=== PATIENT | female | born 1980 | race Caucasian/White ===

== ENCOUNTER → 2018-03-07 | Outpatient (CLI) | payer OTHER | LOC: SLEEP 15:18 → MERGE 15:20 | PROVIDERS: ATTEND Internal Medicine Critical Care Medicine | DX: Z53.9 Procedure and treatment not carried out, unspecified reason (principal) ==

== ENCOUNTER → 2018-03-28 | Outpatient (CLI) | payer OTHER ==
--- NOTE | 2018-03-28 15:10 | CONS ---
CONSULTATION Consultation note for sleep apnea and hypersomnia. A 37-year-old female patient, a , with known history of depression, PTSD and anxiety is coming in for excessive sleepiness during the day. The patient has been suspected of obstructive sleep apnea. For that reason, she was referred to me. She is obese and she is snoring and clearly reports witnessed apneas throughout the night and occurring on multiple occasions. The patient is trying to sleep approximately 10 hours. She goes to bed around 10:00 p.m. and wakes up at 8 a.m. in the morning and despite that, she is still very much drowsy and sleepy during the day. She was recently given Tofranil which made her condition worse. Tofranil is an imipramine in all generation tricyclic antidepressant that can cause excessive side effects including excessive drowsiness and sleepiness. Since on Tofranil the patient gained more weight and she has become much more drowsy or sleepy to the point where she is having a hard time keeping herself awake. She is also on a combination of Prozac/SSRI and Abilify. She is seeing [facility] regarding her history of depression and PTSD. She is tired all the time. She is having difficulty with concentration, memory and concentration. No excessive restlessness of lower extremities. Occasional sleep talking, no sleepwalking. [place] score is at 16. PAST MEDICAL HISTORY: Depression, PTSD, anxiety and obesity. PAST SURGICAL HISTORY: The patient has undergone a cholecystectomy, left hand surgeon, right knee surgery and hysterectomy. DRUG ALLERGIES: Positive COMPAZINE; LAMICTAL and LATEX. OUTPATIENT MEDICATION: Includes Tofranil 75 mg p.o. 1 tablet a day. Abilify 5 daily, Prozac 20 daily and Ventolin on a p.r.n. basis. SOCIAL HISTORY: Patient is smoking. No history of alcohol, no history of substance abuse. Family is negative for sleep apnea. REVIEW OF SYSTEMS: A 12-point review of system was done. No insomnia and no reported choking or gasping for air. Although she is waking up with loud snore. She occasionally grinds her teeth. No sleepwalking, no anxiety or panic attacks. She has dry mouth, blurred vision and she has also occasional headaches and drowsiness and dizziness. No nausea, no vomiting. No constipation. She has never been involved in a motor vehicle accident because of feeling drowsy or sleepy. She wakes up frequently throughout the night. At least 3-4 times to go use the bathroom. Weight is fluctuating, it is up since Tofranil was started. Her highest weight has been 260 pounds. PHYSICAL EXAMINATION: BP is 126/84, pulse 80, respirations 16, temperature 99.1 saturation 96% on room air. Neck size 17.5 inches, BMI 39.7, [place] score is 6, weight is 46, height is 5, 6 inches. GENERAL APPEARANCE: Calm, comfortable. Head is atraumatic, normocephalic. Neck is short, supple. Mallampati class IV. There is no goiter or neck mass. LUNGS: Clear to auscultation. HEART: Sounds are regular rate and rhythm. Normal S1, S2. No S3, S4. No murmurs. ABDOMEN: Soft, nontender. No organomegaly. EXTREMITIES: No edema. No cyanosis or clubbing. IMPRESSION: 1. Excessive hypersomnia with underlying possible causes being;. 2. Obstructive sleep apnea. 3. Depression. 4. Drug effect as the patient is currently on Tofranil/imipramine, AHI, secondary known to cause excessive drowsiness and sleepiness. 5. Obesity, body mass index of 39.7. 6. Depression. 7. Posttraumatic stress disorder. 8. Anxiety. PLAN: 1. Encourage weight loss. 2. Patient will need to discuss medication with psychiatrist, knowing it will cause excessive drowsiness and sleepiness and that may adverse the affect of the daytime symptoms in general. The patient also experiencing the extra parameter symptoms of Tofranil. 3. Proceed with a polysomnogram looking for any significant sleep breathing disorder. I am very much suspicious that we are going to find significant sleep apnea, for which the patient will need further treatment. 4. Implement good sleep hygiene measures. 5. Continue to follow and will make further recommendations based on her progress. MMODL / IJN: [id number] /
== END | disposition home or self-care (01) ==
LOC: SLEEP 13:06
PROVIDERS: ATTEND Internal Medicine Critical Care Medicine
DX: G47.33 Obstructive sleep apnea (adult) (pediatric) (principal); F32.9 Major depressive disorder, single episode, unspecified; F41.9 Anxiety disorder, unspecified; F43.10 Post-traumatic stress disorder, unspecified; E66.9 Obesity, unspecified; F17.200 Nicotine dependence, unspecified, uncomplicated; Z68.39 Body mass index [BMI] 39.0-39.9, adult; Z79.899 Other long term (current) drug therapy; Z88.8 Allergy status to other drugs, medicaments and biological substances; Z91.040 Latex allergy status; Z90.49 Acquired absence of other specified parts of digestive tract; Z98.890 Other specified postprocedural states
CPT/HCPCS: 99211

== ENCOUNTER → 2018-04-24 | Outpatient (CLI) | payer OTHER ==
--- NOTE | 2018-04-24 13:03 | US ---
EXAMINATION TYPE: US transvaginal DATE OF EXAM: 04/24/2018 COMPARISON: NONE CLINICAL HISTORY: L68.0 HIRSUTISM. Possible PCOS per patient TECHNIQUE: . Transvaginal sonographic images of the pelvis were acquired. Date of LMP: 04/08/2018 EXAM MEASUREMENTS: Uterus: 7.1 x 3.1 x 2.9 cm Endometrial Stripe: 0.7 cm Right Ovary: 3.2 x 2.1 x 3.3 cm Left Ovary: 3.0 x 2.1 x 1.7 cm 1. Uterus: Anteverted wnl 2. Endometrium: wnl 3. Right Ovary: Cystic area visualized measuring 1.5 x 1.2 x 1.4 m. Complex area visualized measurin g 1.6 x 1.4 x 1.6 cm 4. Left Ovary: Some echogenic foci visualized 5. Bilateral Adnexa: wnl 6. Posterior cul-de-sac: wnl IMPRESSION: There may be a hemorrhagic cyst associated with the right ovary, possibly left ovary vers us involuted follicles.
== END | disposition home or self-care (01) ==
LOC: RADUSWWP 11:59
PROVIDERS: ATTEND Family Medicine
DX: L68.0 Hirsutism (principal)
CPT/HCPCS: 76830

== ENCOUNTER → 2018-06-09 | Outpatient (CLI) | payer OTHER ==
--- NOTE | 2018-06-09 14:10 | MM ---
Reason for exam: clinical finding. Baseline mammogram. History: Patient is nulliparous. Family history of breast cancer in mother at age 55. Physical Findings: Nurse Summary:0.5-1cm nodule in the left breast at 1 o'clock and 2 o'clock (nurse kp). [facility] Diagnostic Mammo w CAD JOAO Bilateral CC and MLO view(s) were taken. The breast tissue is heterogeneously dense. This may lower the sensitivity of mammography. Multiple nodules bilaterally, no individual nodule more suspicious than another. These results were verbally communicated with the patient and result sheet given to the patient on 06/09/18. ASSESSMENT: Incomplete: need additional imaging evaluation, BI-RAD 0 RECOMMENDATION: Ultrasound of the left breast. (palpable abnormality)
--- NOTE | 2018-06-09 14:13 | USB ---
Reason for exam: additional evaluation requested from abnormal screening. History: Patient is nulliparous. Family history of breast cancer in mother at age 55. US Breast Workup Limited LT Left limited breast ultrasound including focal area of concern, retroareolar and axilla demonstrates a 0.7 x 0.6 x 0.5cm oval, cystic lesion at 2 o'clock BB. These results were verbally communicated with the patient and result sheet given to the patient on 06/09/18. ASSESSMENT: Benign, BI-RAD 2 RECOMMENDATION: Routine screening mammogram of both breasts in 1 year.
== END | disposition home or self-care (01) ==
LOC: RADMAMWWP 12:48
PROVIDERS: ATTEND Family Medicine
DX: N63.0 Unspecified lump in unspecified breast (principal)
CPT/HCPCS: 77066